=== PATIENT | female | born 1975 | race Caucasian/White ===

== ENCOUNTER 2024-03-02 18:16 | Emergency (ER) | payer MEDICAID ==
[2024-03-02] MEDS ORDERED: ONDANSETRON HCL 4 MG/2 ML VIAL IVP ONE (18:30)
[2024-03-02] MEDS ORDERED: NACL 0.9% 1,000 ML IV ONE (18:30)
[2024-03-02] MEDS ORDERED: ACETAMINOPHEN 500 MG TABLET PO ONE (18:30)
[2024-03-02] MEDS ORDERED: KETOROLAC TROMETHAMINE 30 MG VIAL IVP ONE (18:30)
[2024-03-02] MEDS ORDERED: PHEN-801 PO (21:36)
[2024-03-02] MEDS ORDERED: ONDA-8 TL (21:36)
[2024-03-02] MEDS ORDERED: IBUP-1969 PO (21:36)
[2024-03-02] MEDS ORDERED: DOXY100C5 PO (21:36)
== END 2024-03-02 19:01 | disposition left against medical advice (07) ==
LOC: SED 18:16
DX: N39.0 Urinary tract infection, site not specified (principal); R10.9 Unspecified abdominal pain; Z53.21 Procedure and treatment not carried out due to patient leaving prior to being seen by health care provider

== ENCOUNTER 2024-03-02 19:39 | Emergency (ER) | payer MEDICAID ==
[~2024-03-02] VITALS: Ht 162.6 cm; Wt 78.0 kg
[2024-03-02 19:46] VITALS: BP_SYST 130; PULSE 65; RESP 16; TEMP 97.6; O2SAT 98
[2024-03-02 20:01] LABS: BILIRUBIN,URINE NEGATIVE (NEGATIVE); COLOR,URINE YELLOW (YELLOW); GLUCOSE,URINE NEGATIVE (NEGATIVE); KETONES,URINE TRACE (NEGATIVE); LEUKOCYTE ESTERASE ,URINE NEGATIVE (NEGATIVE); NITRITE, URINE NEGATIVE (NEGATIVE); PROTEIN URINE NEGATIVE (NEGATIVE); UROBILINOGEN,URINE 0.2 (0.2-1.0)
[2024-03-02 20:13] LABS: BLOOD, URINE TRACE (NEGATIVE); CLARITY/URINE SLIGHTLY HAZY (CLEAR)
[2024-03-02 20:14] LABS: BACTERIA,URINE FEW /HPF (None Seen); MUCUS,URINE None Seen /LPF (None Seen); RBC,URINE 0-3 /HPF (0-3); WBC,URINE 0-3 /HPF (0-3)
[2024-03-02] MEDS: PHENAZOPYRIDINE HCL 100 MG TABLET PO ONE (21:33)
[2024-03-02] MEDS: ONDANSETRON 4 MG ODT TAB PO ONE (21:33)
[2024-03-02] MEDS ORDERED: PHEN-801 PO (21:36)
[2024-03-02] MEDS ORDERED: IBUP-1969 PO (21:36)
[2024-03-02] MEDS ORDERED: ONDA-8 TL (21:36)
[2024-03-02] MEDS ORDERED: DOXY100C5 PO (21:36)
[2024-03-02] MEDS: KETOROLAC TROMETHAMINE 30 MG VIAL IM ONE (21:40)
[2024-03-02] MEDS: cefTRIAXone 1 GM in LIDOCAINE 1%, 20 ML MDV 2.1 ML IM ONE (21:52)
[2024-03-02] MEDS: cefTRIAXone 1 GM VIAL IM ONE (21:58)
[2024-03-02 22:08] VITALS: BP_SYST 127; PULSE 65; RESP 18; TEMP 98.3; O2SAT 100
[2024-03-02 23:56] LABS: HCG,QUAL RESULT NEGATIVE (NEGATIVE)
== END 2024-03-02 22:08 | disposition home or self-care (01) ==
LOC: SED 19:39
DX: N39.0 Urinary tract infection, site not specified (principal); R10.9 Unspecified abdominal pain; R11.0 Nausea; Z87.440 Personal history of urinary (tract) infections
CPT/HCPCS: 99284; 81001; 84703; 96372; Q0162; J0696; J1885; J2003; 81000; 81015

== ENCOUNTER 2024-03-11 15:57 | Emergency (ER) | payer MEDICAID ==
[~2024-03-11] VITALS: Ht 162.6 cm; Wt 75.7 kg
[~2024-03-11 15:57] MED LIST: DOXY100C5 PO; IBUP-1969 PO; ONDA-8 TL; PHEN-801 PO
[2024-03-11 16:17] VITALS: BP_SYST 146; PULSE 53; RESP 18; TEMP 97.4; O2SAT 97
[2024-03-11 16:54] LABS: BASOPHILS # (AUTO) 0.1 K/uL (0.0-0.2); BASOPHILS % (AUTO) 1.4 % (0.0-2.0); EOSINOPHILS # (AUTO) 0.2 K/uL (0.0-0.4); EOSINOPHILS % (AUTO) 3.8 % (0.0-4.0); HEMATOCRIT 35.7 % (36-48); HEMOGLOBIN 12.7 g/dL (12.0-16.0); LYMPHOCYTES # (AUTO) 2.6 K/uL (1.0-5.5); LYMPHOCYTES % (AUTO) 48.9 % (20.5-51.5); MEAN CORPUSCULAR HEMOGLOBIN 32 pg (27-31); MEAN CORPUSCULAR HGB CONC 36 % (32-36); MEAN CORPUSCULAR VOLUME 89 fL (79.0-98.0); MONOCYTES # (AUTO) 0.3 K/uL (0.0-1.0); MONOCYTES % (AUTO) 5.4 % (1.7-9.3); NEUTROPHILS # (AUTO) 2.2 K/uL (1.8-7.7); NEUTROPHILS % (AUTO) 40.5 % (40.0-70.0); PLATELET COUNT (AUTO) 181 K/uL (130-430); RED BLOOD CELL COUNT(AUTO) 4.01 MIL/uL (4.2-6.2); RED CELL DISTRIBUTION WIDTH 12.9 % (9.0-15.0); WHITE BLOOD COUNT (AUTO) 5.4 K/uL (4.8-10.8)
[2024-03-11 17:05] LABS: BILIRUBIN,URINE NEGATIVE (NEGATIVE); BLOOD, URINE NEGATIVE (NEGATIVE); COLOR,URINE YELLOW (YELLOW); GLUCOSE,URINE NEGATIVE (NEGATIVE); KETONES,URINE NEGATIVE (NEGATIVE); LEUKOCYTE ESTERASE ,URINE NEGATIVE (NEGATIVE); NITRITE, URINE NEGATIVE (NEGATIVE); PH,URINE 6.5 (5.0-8.0); PROTEIN URINE NEGATIVE (NEGATIVE); UROBILINOGEN,URINE 0.2 (0.2-1.0)
[2024-03-11 17:08] LABS: CLARITY/URINE SLIGHTLY HAZY (CLEAR)
[2024-03-11 17:11] LABS: ALANINE AMINOTRANSFERASE 27 U/L (12-78); ALBUMIN 3.7 g/dL (3.4-4.8); ANION GAP 5 (5-15); ASPARTATE AMINOTRANSFERASE 20 U/L (10-37); BILIRUBIN,DIRECT < 0.1 mg/dL (0.0-0.3); CALCIUM 8.6 mg/dL (8.4-11.0); CARBON DIOXIDE 33 mmol/L (23-29); CHLORIDE 108 mmol/L (98-107); CREATININE 0.97 mg/dL (0.55-1.30); GFR AFRICAN AMERICAN 79 mL/min (>90); GLUCOSE 113 mg/dL (74-106); LIPASE 38 U/L (16-77); POTASSIUM 3.7 mmol/L (3.5-5.1); SODIUM SERUM 146 mmol/L (136-145); TOTAL BILIRUBIN 0.3 mg/dL (0.0-1.0); TOTAL PROTEIN, SERUM 6.9 g/dL (6.4-8.3); UREA NITROGEN, BLOOD 19 mg/dL (8-21)
[2024-03-11] MEDS: KETOROLAC TROMETHAMINE 60 MG/2 ML VIAL IM ONE (17:14)
[2024-03-11 17:21] LABS: GFR NON AFRICAN-AMERICAN 65 mL/min (>90)
[2024-03-11 17:36] LABS: BACTERIA,URINE FEW /HPF (None Seen); MUCUS,URINE 2+ /LPF (None Seen); WBC,URINE 0-3 /HPF (0-3)
[2024-03-11] MEDS ORDERED: NITR-85 PO (18:07)
[2024-03-11 18:28] VITALS: BP_SYST 132; PULSE 58; RESP 18; TEMP 97.4; O2SAT 58
== END 2024-03-11 18:31 | disposition home or self-care (01) ==
LOC: SED 15:57
DX: R30.0 Dysuria (principal); R10.9 Unspecified abdominal pain; R31.9 Hematuria, unspecified; R11.0 Nausea; Z79.899 Other long term (current) drug therapy
CPT/HCPCS: 99285; 74176; 80076; 80048; 81001; 83690; 85025; 36415; 81025; 96372; J1885; 81000; 81015